=== PATIENT | male | born 1975 | race Caucasian/White ===

== ENCOUNTER 2024-04-24 11:49 | Emergency (ER) | payer MEDICAID ==
[2024-04-24] MEDS: cefTRIAXone 1 GM Vial IM ONE ×2 (13:02)
[2024-04-24] MEDS: cefTRIAXone 1 GM Vial ONE (13:02)
[2024-04-24] MEDS: Lidocaine 1% 5 ML VIAL INJECT ONE (13:08)
== END 2024-04-24 13:06 | disposition home or self-care (01) ==
LOC: LB.ED 11:49
DX: J32.0 Chronic maxillary sinusitis (principal); I10 Essential (primary) hypertension; Z88.8 Allergy status to other drugs, medicaments and biological substances; Z79.899 Other long term (current) drug therapy
CPT/HCPCS: 87651; 96372; 99283; J0696

== ENCOUNTER 2024-06-26 10:47 | Emergency (ER) | payer MEDICAID ==
[2024-06-26] MEDS ORDERED: Carbamide Peroxide 6.5% Otic Soln 15 ML Bottle EARBOTH SCH (14:00)
== END 2024-06-26 11:59 | disposition home or self-care (01) ==
LOC: LB.ED 10:47
DX: S22.41XA Multiple fractures of ribs, right side, initial encounter for closed fracture (principal); I10 Essential (primary) hypertension; E78.00 Pure hypercholesterolemia, unspecified; Z88.8 Allergy status to other drugs, medicaments and biological substances; Z79.899 Other long term (current) drug therapy; W00.0XXA Fall on same level due to ice and snow, initial encounter
CPT/HCPCS: 71101-RT; 99283; A9270-GY